=== PATIENT | male | born 1960 | race Caucasian/White ===

== ENCOUNTER 2020-05-14 13:32 | Emergency (ER) | payer OTHER, MEDICAID ==
[~2020-05-14] VITALS: Ht 180.3 cm; Wt 90.7 kg
[~2020-05-14 13:32] MED LIST: ALBU8.5H8 INH; CHOL500037 PO; FLUT1DIS INH; FOLI-43 PO; GABA-529 PO; HYDR-4100 PO; LEVE500T9 PO; LIP40 PO; LISI2.5T48 PO; METF1000 PO; OMEP20CA11 PO; PHEN100C4 PO; TOPI200T PO; ZOLP10TA2 PO
[2020-05-14 13:39] VITALS: BP_SYST 138
--- NOTE | 2020-05-14 13:41 | NUR ---
BHAVESH TO ASSUME CARE
[2020-05-14] MEDS ORDERED: MORPHINE SULFATE 10 MG/ML VIAL IM ONE (14:00)
[2020-05-14] MEDS ORDERED: ONDANSETRON 4 MG ODT TAB PO ONE (14:00)
--- NOTE | 2020-05-14 14:02 | NUR ---
DR FOSTER AT BEDSIDE TO ASSESS
--- NOTE | 2020-05-14 14:45 | NUR ---
CALM, ALERT, RESP UNLABORED. SKIN WARM AND DRY. COMMUNICATES CLEARLY DENIES CP/SOB. DENIES RECENT INJURY C/O CHRONIC LBP SINE 40'S BUT INCREASED IN SEVERITY
[2020-05-14 15:16] VITALS: BP_SYST 144
--- NOTE | 2020-05-14 15:17 | NUR ---
Patient given written and verbal discharge instructions and verbalizes understanding. ER MD FOSTER discussed with patient the results and treatment provided. Patient in stable condition. ID arm band removed. RX given. Patient educated on pain management and to follow up with PMD. Opportunity for questions provided and answered. Medication side effect fact sheet provided.
== END 2020-05-14 15:16 | disposition home or self-care (01) ==
LOC: SED 13:32
DX: M54.5 Low back pain (principal); J44.9 Chronic obstructive pulmonary disease, unspecified; K21.9 Gastro-esophageal reflux disease without esophagitis; I10 Essential (primary) hypertension; E11.9 Type 2 diabetes mellitus without complications; I25.2 Old myocardial infarction; Z86.79 Personal history of other diseases of the circulatory system; Z79.899 Other long term (current) drug therapy
CPT/HCPCS: 96372; 99283; J2270; Q0162